=== PATIENT | male | born 1960 | race Caucasian/White ===

== ENCOUNTER 2018-09-21 11:12 | Emergency (ER) | payer OTHER ==
[~2018-09-21] VITALS: Ht 170.2 cm; Wt 112.9 kg
[~2018-09-21 11:12] MED LIST: ECO81 PO; IBUPROFEN400 MG; KEFLEX500 MG; LAC PO; LEVOFLOXACIN750 M1 PO; NORCO1 TA1 PO; ZOC10 PO
[2018-09-21 11:18] VITALS: Ht 170.2 cm; Wt 112.9 kg
[2018-09-21 13:08] VITALS: BP 110/62
== END 2018-09-21 13:08 | disposition home or self-care (01) ==
LOC: ED 11:12
DX: S90.32XA Contusion of left foot, initial encounter (principal); F41.9 Anxiety disorder, unspecified; F20.9 Schizophrenia, unspecified; Z88.1 Allergy status to other antibiotic agents; W22.8XXA Striking against or struck by other objects, initial encounter; Y93.89 Activity, other specified; Y92.89 Other specified places as the place of occurrence of the external cause; Y99.8 Other external cause status
CPT/HCPCS: Q0092